=== PATIENT | female | born 1975 | race African-American/Black ===

== ENCOUNTER 2017-01-31 22:00 | Emergency (ER) | payer OTHER ==
[2017-02-01 00:50] LABS: BASOPHIL % 1.4 % (0-2); PLATELET COUNT 193 x10^3mcL (130-400); RED CELL DISTRIBUTION WIDTH 14.4 % (11.5-14.5)
[2017-02-01 00:58] LABS: CALCIUM 8.9 mg/dL (8.5-10.1); CARBON DIOXIDE 26.9 mmol/L (21-32); CHLORIDE SERUM 106 mmol/L (98-107); CREATININE SERUM 0.8 mg/dL (0.6-1.0); GFR1 > 60 mL/min; GLUCOSE SERUM 100 mg/dL (74-106); POTASSIUM SERUM 3.9 mmol/L (3.5-5.1); SODIUM SERUM 138 mmol/L (136-145)
[2017-02-01 01:03] LABS: ALKALINE PHOSPHATASE 91 U/L (46-116); ALT/SGPT 35 U/L (14-59); AST/SGOT 19 U/L (15-37); BILIRUBIN TOTAL 0.2 mg/dL (0.20-1.00); LIPASE 86 IU/L (73-393); TOTAL PROTEIN, SERUM 7.3 g/dL (6.4-8.2)
[2017-02-01 01:08] LABS: ALBUMIN 3.1 g/dL (3.4-5.0)
[2017-02-01 02:02] VITALS: BP 108/60
== END 2017-02-01 02:02 | disposition home or self-care (01) ==
LOC: ED 22:00
PROVIDERS: Emergency Medicine
DX: K21.9 Gastro-esophageal reflux disease without esophagitis (principal); R03.0 Elevated blood-pressure reading, without diagnosis of hypertension; Z79.899 Other long term (current) drug therapy; Z98.890 Other specified postprocedural states
CPT/HCPCS: Q0092

== ENCOUNTER 2018-08-17 20:50 | Emergency (ER) | payer OTHER ==
[~2018-08-17] VITALS: Ht 154.9 cm; Wt 99.8 kg
[2018-08-17 21:01] VITALS: Ht 154.9 cm; Wt 99.8 kg
[2018-08-17 22:25] VITALS: BP 128/80
== END 2018-08-17 23:09 | disposition home or self-care (01) ==
LOC: ED 20:50
DX: T78.3XXA Angioneurotic edema, initial encounter (principal); K21.9 Gastro-esophageal reflux disease without esophagitis; Z98.890 Other specified postprocedural states
CPT/HCPCS: J7512; Q0163